=== PATIENT | male | born 1975 | race Caucasian/White ===

== ENCOUNTER 2018-02-28 04:13 | Emergency (ER) | END 2018-02-28 07:19 | disposition home or self-care (01) ==

== ENCOUNTER 2018-12-04 13:40 | Emergency (ER) | payer BC ==
[~2018-12-04] VITALS: Wt 59.0 kg
[~2018-12-04 13:40] MED LIST: HYDR25TA6 PO; METO-429 PO
[2018-12-04] MEDS ORDERED: KETOROLAC 30 MG INJ IV STA (14:10)
[2018-12-04] MEDS ORDERED: ONDANSETRON 4 MG INJ IV STA (14:10)
--- NOTE | 2018-12-04 14:14 | ERD ---
ER Documentation Chief Complaint Chief Complaint MILD HEADACHE WITH VOMITING AND DIZZINESS. NO CP OR SOB NOTED. HPI This is a 43-year-old male with a past history of hypertension, who presents for evaluation of vomiting and diarrhea. States that he thinks it might be food poisoning, he denies fever, denies abdominal pain, no chest pain or shortness of breath. Tilly dizzy when he tried to get up earlier today. There are no relie ving or aggravating factors, he has had no recent travel, no recent antibiotic use. ROS All systems reviewed and are negative except as per history of present illness. Medications Home Meds Reported Medications Metoprolol Tartrate* (Lopressor*) 50 Mg Tab, 50 MG PO BID, #60 TAB 04/18/18 Discontinued Scripts Hydrochlorothiazide* (Hydrochlorothiazide*) 25 Mg Tab, 25 MG PO DAILY, #30 TAB Prov:PONCE BURNS MD 04/18/18 Allergies Allergies: Coded Allergies: No Known Allergies (Verified Allergy, Mild, 12/04/18) PMhx/Soc History of Surgery: Yes Anesthesia Reaction: No Hx Neurological Disorder: No Hx Respiratory Disorders: No Hx Cardiac Disorders: Yes (HTN) Hx Psychiatric Problems: No Hx Miscellaneous Medical Probl: No Hx Alcohol Use: No Hx Substance Use: Yes ([facility]CC. [facility]) Hx Tobacco Use: No Physical Exam Vitals Vital Signs Date Temp Pulse Resp B/P (MAP) Pulse Ox O2 O2 Flow FiO2 Time Delivery Rate 12/04/18 61 16 139/100 100 Room Air 16:08 (113) 12/04/18 98.0 69 18 211/130 98 13:43 (157) Physical Exam Const: No acute distress Head: Atraumatic Eyes: Normal Conjunctiva ENT: Normal External Ears, Nose and Mouth. Neck: Full range of motion. No meningismus. Resp: Clear to auscultation bilaterally Cardio: Regular rate and rhythm, no murmurs Abd: Soft, non tender, non distended, no rebound or guarding, no McBurney's point tenderness, no Hendrickson's tenderness. Normal bowel sounds Skin: No petechiae or rashes Back: No midline or flank tenderness Ext: No cyanosis, or edema Neur: Awake and alert, strength 5 out of 5 bilaterally, no cerebellar Psych: Normal Mood and Affect Result Diagram: 12/04/18 1438 12/04/18 1438 Results 24 hrs Laboratory Tests Test 12/04/18 14:38 White Blood Count 5.1 10^3/ul Red Blood Count 4.44 10^6/ul Hemoglobin 13.5 g/dl Hematocrit 40.5 % Mean Corpuscular Volume 91.2 fl Mean Corpuscular Hemoglobin 30.4 pg Mean Corpuscular Hemoglobin Concent 33.3 g/dl Red Cell Distribution Width 13.0 % Platelet Count 75 10^3/UL Mean Platelet Volume 12.7 fl Immature Granulocytes % 0.600 % Neutrophils % 62.8 % Lymphocytes % 22.8 % Monocytes % 10.4 % Eosinophils % 2.2 % Basophils % 1.2 % Nucleated Red Blood Cells % 0.0 /100WBC Immature Granulocytes # 0.030 10^3/ul Neutrophils # 3.2 10^3/ul Lymphocytes # 1.2 10^3/ul Monocytes # 0.5 10^3/ul Eosinophils # 0.1 10^3/ul Basophils # 0.1 10^3/ul Nucleated Red Blood Cells # 0.0 10^3/ul Sodium Level 140 mmol/L Potassium Level 4.2 mmol/L Chloride Level 110 mmol/L Carbon Dioxide Level 24 mmol/L Anion Gap 6 Blood Urea Nitrogen 24 mg/dl Creatinine 1.10 mg/dl Est Glomerular Filtrat Rate mL/min > 60 mL/min Glucose Level 93 mg/dl Calcium Level 9.3 mg/dl Total Bilirubin 0.4 mg/dl Direct Bilirubin 0.00 mg/dl Indirect Bilirubin 0.4 mg/dl Aspartate Amino Transf (AST/SGOT) 35 IU/L Alanine Aminotransferase (ALT/SGPT) 49 IU/L Alkaline Phosphatase 82 IU/L Troponin I < 0.012 ng/ml Total Protein 6.7 g/dl Albumin 3.8 g/dl Globulin 2.90 g/dl Albumin/Globulin Ratio 1.31 Current Medications Medications Dose Sig/[place] Start Time Status Last (Trade) Ordered Route PRN Stop Time Admin Dose Reason Admin Ondansetron 4 mg ONCE STAT 12/04/18 DC 12/04/18 HCl (Zofran IV 14:10 14:36 Inj) 12/04/18 14:12 Ketorolac 30 mg ONCE STAT 12/04/18 DC 12/04/18 Tromethamine IV 14:10 14:37 (Toradol) 12/04/18 14:12 25 mg ONCE ONCE 12/04/18 DC 12/04/18 Diphenhydrami IV 14:30 14:36 ne HCl 12/04/18 14:31 (Benadryl) Procedures/MDM 43-year-old male presents with vomiting and diarrhea. The patient had no abdominal pain and on exam he had no peritoneal signs, and no tenderness, his blood pressure was initially noted to be elevated, in the setting of vomiting a CT brain was performed to evaluate for any acute intracranial findings, this was negative. His labs are otherwise unremarkable, and had no evidence of hypertensive emergency. His blood pressure improved, with control of his symptoms. On reassessment, the patient continued to not have any abdominal pain, I discussed findings with patient he felt comfortable with discharge home, given a prescription for Zofran at discharge he was in no distress. EKG: Rate/Rhythm: Normal Sinus Rhythm QRS, ST, T-waves: No changes consistent w/ acute ischemia Impression: No evidence of ischemia or arrhythmia Departure Diagnosis: Primary Impression: Vomiting and diarrhea Additional Impression: Hypertension Hypertension type: essential hypertension Qualified Codes: I10 - Essential (primary) hypertension Condition: Stable ABDIRAHMAN FELIX MD Dec 04, 2018 14:14
[2018-12-04] MEDS ORDERED: DIPHENHYDRAMINE 50 MG INJ IV ONE (14:30)
[2018-12-04] MEDS ORDERED: ONDA4TAB14 PO (17:18)
[2018-12-04 17:40] VITALS: BP 145/98; PULSE 72; RESP 16
== END 2018-12-04 17:40 | disposition home or self-care (01) ==
LOC: E/R 13:40
DX: R11.10 Vomiting, unspecified (principal); I10 Essential (primary) hypertension; R19.7 Diarrhea, unspecified
CPT/HCPCS: 36415; 70450; 80053; 84484; 85025; 93005; 96374; 96375; 99285; J1200; J1885; J2405